=== PATIENT | male | born 1945 | race Caucasian/White ===

== ENCOUNTER → 2017-09-01 | Outpatient (CLI) | payer MEDICARE ==
[~2017-09-01] MED LIST: AMLODIPINE BESYL5 MG PO; ATORVASTATIN CA20 MG PO; BENICAR20 MG PO; DOXYCYCLINE HY100 MG PO; LEVAQUIN500 MG PO; METOPROLOL TART25 MG PO; TYLENOL WITH C1 EACH PO; XARELTO20 MG PO
== END ==
LOC: MRI 15:43
PROVIDERS: ATTEND Psychiatry & Neurology Neurology
DX: M54.16 Radiculopathy, lumbar region (principal)
CPT/HCPCS: 72148